=== PATIENT | male | born 1935 | race Caucasian/White ===

== ENCOUNTER → 2018-02-07 11:21 | Outpatient (CLI) | payer MEDICARE, SELFPAY ==
[2018-02-07 11:43] LABS: Bacteria 0 SEEN /hpf (None Seen); Mucous, Urine 0 SEEN /hpf (<or=2+); Red Blood Cells-Urine 0 SEEN /hpf (0-5); Squamous Epithelial Cells - UA 0 SEEN /hpf (0-5); White Blood Cells 0 SEEN /hpf (0-5)
[2018-02-07 11:51] LABS: Color, Urine Yellow (Yellow); Glucose, Dipstick Normal (Normal); Ketone-Dipstick Negative (Negative); Leukocyte Esterase-Dipstick Negative /ul (Negative); Nitrite-Dipstick Negative (Negative); Occult Blood-Urine Negative /ul (Negative); Protein-Dipstick 15 mg/dl (Negative); Urine Bilirubin Dipstick Negative (Negative); Urine Clarity Clear (Clear); Urine Urobilinogen Normal (Normal)
[2018-02-07 12:06] LABS: ALB/GLOB Ratio 1.1 RATIO (0.9-2.4); AST(SGOT) 24 U/L (15-37); Alanine Aminotransfer ALT/SGPT 27 U/L (16-61); Albumin, Serum 3.6 g/dL (3.2-5.0); Alkaline Phosphatase 50 U/L (45-117); Anion Gap 8 (5-15); BUN 19 mg/dL (7-18); Calcium,Total 8.5 mg/dL (8.5-10.1); Chloride 106 mmol/L (98-107); Cholesterol 134 mg/dL (200); EST Glomerular Filtration Rate 76 mL/min (>60); Est Glom Filt Rate - Afr Amer 92 mL/min (>60); Globulin 3.3 g/dL (2.2-4.2); Glucose 133 mg/dL (74-106); High Density Lipoprotein 51 mg/dL; Potassium 4.2 mmol/L (3.5-5.1); Protein, Total 6.9 g/dL (6.4-8.2); Sodium Level 141 mmol/L (136-145); Thyroid Stim Hormone (TSH) 1.82 uIU/mL (0.358-3.74); Triglycerides 72 mg/dL; Very Low Density Lipoprotein 14 mg/dL (5-40)
[2018-02-07 12:07] LABS: Hemoglobin A1c 7.2 % (4.2-6.3)
[2018-02-07 12:10] LABS: Microalbumin,Random Urine 75.9 mg/L (NO RANGE EST.); Microalbumin:Creatinine Ratio 75.1 mg/g CRE (<30 mg/g CRE)
== END ==
PROVIDERS: Family Provider Internal Medicine; PCP Internal Medicine; Visit Provider Internal Medicine
DX: E11.29 Type 2 diabetes mellitus with other diabetic kidney complication (principal); Z79.4 Long term (current) use of insulin; R80.9 Proteinuria, unspecified; E78.2 Mixed hyperlipidemia; I10 Essential (primary) hypertension
CPT/HCPCS: 80053; 80061; 81001; 82043; 82570; 83036; 84443

== ENCOUNTER → 2018-08-11 15:25 | Outpatient (CLI) | payer MEDICARE, SELFPAY ==
[2018-08-11 16:58] LABS: Hematocrit 43.9 % (40-54); Mean Corp Hgb Conc 31.9 g/gl (32-36); Mean Corpuscular Hgb 30.6 pg (27.0-32.0); Mean Corpuscular Volume 96.1 fL (80-94); Mean Platelet Vol. 10.6 fl (6.2-12.0); Platelet Count 258 K/mm3 (150-450); RBC Distribution Width CV 12.6 % (11.6-14.6); Red Blood Count 4.57 M/mm3 (4.6-6.2); White Blood Count 5.9 K/mm3 (4.4-11.0)
[2018-08-11 16:59] LABS: ALB/GLOB Ratio 0.9 RATIO (0.9-2.4); AST(SGOT) 18 U/L (15-37); Alanine Aminotransfer ALT/SGPT 23 U/L (16-61); Albumin, Serum 3.5 g/dL (3.2-5.0); Alkaline Phosphatase 58 U/L (45-117); Anion Gap 7 (5-15); BUN 15 mg/dL (7-18); BUN/Creat Ratio 16.5 RATIO (10-20); Calcium,Total 8.7 mg/dL (8.5-10.1); Chloride 105 mmol/L (98-107); Cholesterol 150 mg/dL (200); Creatinine, Serum 0.91 mg/dL (0.70-1.30); EST Glomerular Filtration Rate 85 mL/min (>60); Est Glom Filt Rate - Afr Amer 103 mL/min (>60); Globulin 3.7 g/dL (2.2-4.2); Glucose 58 mg/dL (74-106); High Density Lipoprotein 44 mg/dL; Protein, Total 7.2 g/dL (6.4-8.2); Sodium Level 139 mmol/L (136-145); Triglycerides 83 mg/dL; Very Low Density Lipoprotein 17 mg/dL (5-40)
[2018-08-11 17:01] LABS: Scan Indicated on CBC? Y/N NO
[2018-08-11 17:11] LABS: Microalbumin:Creatinine Ratio 92.2 mg/g CRE (<30 mg/g CRE)
[2018-08-11 17:29] LABS: Hemoglobin A1c 7.8 % (4.2-6.3)
== END ==
PROVIDERS: Family Provider Internal Medicine; PCP Internal Medicine; Referring Provider Internal Medicine; Visit Provider Internal Medicine
DX: E78.2 Mixed hyperlipidemia (principal); I10 Essential (primary) hypertension; E11.29 Type 2 diabetes mellitus with other diabetic kidney complication; R80.9 Proteinuria, unspecified; Z79.4 Long term (current) use of insulin
CPT/HCPCS: 80053; 80061; 82043; 82570; 83036; 85027

== ENCOUNTER → 2019-02-19 | Outpatient (CLI) | payer MEDICARE, SELFPAY ==
[2019-02-19 11:29] LABS: Hematocrit 46.6 % (40-54); Hemoglobin 15.1 g/dL (13.0-16.5); Mean Corp Hgb Conc 32.4 g/dL (32-36); Mean Corpuscular Hgb 31.3 pg (27.0-32.0); Mean Corpuscular Volume 96.5 fL (80-94); Mean Platelet Vol. 10.1 fl (6.2-12.0); Platelet Count 220 K/mm3 (150-450); RBC Distribution Width CV 12.2 % (11.6-14.6); RBC Distribution Width SD 43.8 fl (35.1-43.9); Red Blood Count 4.83 M/mm3 (4.6-6.2); White Blood Count 7.2 K/mm3 (4.4-11.0)
[2019-02-19 11:51] LABS: AST(SGOT) 15 U/L (15-37); Alanine Aminotransfer ALT/SGPT 25 U/L (16-61); Albumin, Serum 3.7 g/dL (3.2-5.0); Alkaline Phosphatase 56 U/L (45-117); Anion Gap 4 (5-15); BUN 21 mg/dL (7-18); BUN/Creat Ratio 22.2 RATIO (10-20); Chloride 105 mmol/L (98-107); Creatinine, Serum 0.95 mg/dL (0.70-1.30); EST Glomerular Filtration Rate 81 mL/min (>60); Est Glom Filt Rate - Afr Amer 98 mL/min (>60); Globulin 3.6 g/dL (2.2-4.2); Glucose 154 mg/dL (74-106); Potassium 4.5 mmol/L (3.5-5.1); Protein, Total 7.3 g/dL (6.4-8.2); Sodium Level 136 mmol/L (136-145)
[2019-02-19 11:52] LABS: Hemoglobin A1c 7.6 % (4.2-6.3)
== END | disposition home or self-care (01) ==
LOC: LABSPEC 11:16
PROVIDERS: Family Provider Internal Medicine; PCP Internal Medicine; Referring Provider Internal Medicine; Visit Provider Internal Medicine
DX: E11.29 Type 2 diabetes mellitus with other diabetic kidney complication (principal); R80.9 Proteinuria, unspecified; Z79.4 Long term (current) use of insulin; I10 Essential (primary) hypertension; Z79.899 Other long term (current) drug therapy
CPT/HCPCS: 80053; 83036; 84443; 85027

== ENCOUNTER → 2019-08-27 12:44 | Outpatient (CLI) | payer MEDICARE, SELFPAY ==
[2019-08-27 13:16] LABS: Hematocrit 46.2 % (40-54); Hemoglobin 14.8 g/dL (13.0-16.5); Mean Corpuscular Hgb 30.5 pg (27.0-32.0); Mean Corpuscular Volume 95.1 fL (80-94); Mean Platelet Vol. 10.3 fl (6.2-12.0); Platelet Count 252 K/mm3 (150-450); RBC Distribution Width CV 12.1 % (11.6-14.6); RBC Distribution Width SD 41.8 fl (35.1-43.9); Red Blood Count 4.86 M/mm3 (4.6-6.2)
[2019-08-27 13:20] LABS: ALB/GLOB Ratio 0.9 RATIO (0.9-2.4); AST(SGOT) 18 U/L (15-37); Alanine Aminotransfer ALT/SGPT 26 U/L (16-61); Albumin, Serum 3.5 g/dL (3.2-5.0); Alkaline Phosphatase 70 U/L (45-117); Anion Gap 4 (5-15); BUN 14 mg/dL (7-18); BUN/Creat Ratio 13.7 RATIO (10-20); Calcium,Total 9.4 mg/dL (8.5-10.1); Chloride 105 mmol/L (98-107); Cholesterol 151 mg/dL (200); Creatinine, Serum 1.02 mg/dL (0.70-1.30); EST Glomerular Filtration Rate 74 mL/min (>60); Est Glom Filt Rate - Afr Amer 90 mL/min (>60); Globulin 3.9 g/dL (2.2-4.2); Glucose 136 mg/dL (74-106); High Density Lipoprotein 48 mg/dL; Potassium 4.5 mmol/L (3.5-5.1); Protein, Total 7.4 g/dL (6.4-8.2); Sodium Level 138 mmol/L (136-145); Triglycerides 116 mg/dL; Very Low Density Lipoprotein 23 mg/dL (5-40)
[2019-08-27 13:24] LABS: Hemoglobin A1c 7.6 % (4.2-6.3)
[2019-08-27 13:36] LABS: Microalbumin:Creatinine Ratio 109.7 mg/g CRE (<30 mg/g CRE)
== END ==
PROVIDERS: PCP Internal Medicine; Referring Provider Internal Medicine; Visit Provider Internal Medicine
DX: E11.29 Type 2 diabetes mellitus with other diabetic kidney complication (principal); R80.9 Proteinuria, unspecified; E78.2 Mixed hyperlipidemia; Z79.4 Long term (current) use of insulin
CPT/HCPCS: 80053; 80061; 82043; 82570; 83036; 85027

== ENCOUNTER → 2020-03-03 | Outpatient (CLI) | payer MEDICARE, SELFPAY ==
[2020-03-03 16:16] LABS: ALB/GLOB Ratio 1.1 RATIO (0.9-2.4); AST(SGOT) 17 U/L (15-37); Alanine Aminotransfer ALT/SGPT 19 U/L (16-61); Albumin, Serum 3.6 g/dL (3.2-5.0); Alkaline Phosphatase 47 U/L (45-117); Anion Gap 4 (5-15); BUN 16 mg/dL (7-18); BUN/Creat Ratio 17.1 RATIO (10-20); Calcium,Total 8.7 mg/dL (8.5-10.1); Chloride 107 mmol/L (98-107); Cholesterol 138 mg/dL (200); Creatinine, Serum 0.94 mg/dL (0.70-1.30); EST Glomerular Filtration Rate 82 mL/min (>60); Est Glom Filt Rate - Afr Amer 99 mL/min (>60); Globulin 3.2 g/dL (2.2-4.2); Glucose 91 mg/dL (74-106); High Density Lipoprotein 58 mg/dL; Potassium 4.7 mmol/L (3.5-5.1); Protein, Total 6.8 g/dL (6.4-8.2); Sodium Level 139 mmol/L (136-145); Triglycerides 70 mg/dL; Very Low Density Lipoprotein 14 mg/dL (5-40)
[2020-03-03 16:24] LABS: Hemoglobin A1c 6.8 % (3.8-5.6)
== END | disposition home or self-care (01) ==
LOC: LABSPEC 12:29
PROVIDERS: PCP Internal Medicine; Referring Provider Internal Medicine; Visit Provider Internal Medicine
DX: E11.9 Type 2 diabetes mellitus without complications (principal); I10 Essential (primary) hypertension; E78.2 Mixed hyperlipidemia; Z79.4 Long term (current) use of insulin
CPT/HCPCS: 80053; 80061; 83036

== ENCOUNTER 2021-11-04 12:47 | Emergency (ER) | payer MEDICARE, SELFPAY ==
[2021-11-04 12:49] VITALS: BP 168/64; PULSE 55; RESP 17; TEMP 36.1; O2SAT 100; BMI 25.3
--- NOTE | 2021-11-04 13:08 | EX.ED.GUMALE ---
HPI History of Present Illness Chief Complaint: Complaint Informant: patient and spouse/S.O. Narrative Narrative: Patient presents with hematuria. This is the third day this is gone on. He has no pain or dysuria. He feels he empties fully. He has no fevers chills sweats nausea or vomiting. Nothing really makes his better or worse. He had this once back in 2016 but it only occurred with one episode of urination and he was not seen for this. He had history of bladder stone removal about 2 years prior. He has no history of cancer. No recent weight loss or fevers. Patient did have a fall about 6 days ago. His mechanical fall he hit his left shoulder knee and bumped his head. No loss of consciousness. He never hit his abdomen back or flank. He states those areas are sore. He is not having headaches or any neurologic symptoms. [facility] Medical History (Updated 11/04/21 @ 15:[address] Ayaz Caceres MD) BPH (benign prostatic hyperplasia) Diabetes mellitus HTN (hypertension) Hyperlipemia Throat cancer Home Medications enalapril maleate [Vasotec] 20 mg PO DAILY 02/16/14 [History Last Taken 03/08/14 08:30] insulin aspart U-100 [Novolog Flexpen U-100 Insulin] 10 units SUBCUT BIDCM 02/16/14 [History Last Taken 03/08/14 08:30] insulin glargine [Lantus SoloStar Pen] 11 units SUBCUT QHS 10/15/14 [History Last Taken Unknown] lovastatin 20 mg PO DAILY 10/15/14 [History Last Taken Unknown] multivitamin with folic acid [Thera] 1 tab PO DAILY 10/15/14 [History Last Taken Unknown] aspirin [Aspir-81] 81 mg PO DAILY 11/04/21 [History Last Taken Unknown] Allergy/AdvReac Type Severity Reaction Status Date / Time No Known Allergies Allergy Verified 11/04/21 12:47 Social History Smoking Status: Never smoker ROS ROS ED Constitutional Constitutional ED: Denies chills or fever(s) Eyes Eyes: Denies blurry vision or change in vision ENT ENT ED: Denies rhinorrhea Cardiovascular Cardiovascular: Denies chest pain Respiratory/Chest Respiratory/Chest: Denies cough or dyspnea Gastrointestinal Gastrointestinal: Denies abdominal pain, diarrhea, nausea or vomiting Genitourinary Genitourinary ED: Reports hematuria; Denies dysuria or urinary frequency Musculoskeletal Musculoskeletal: Denies back pain or myalgias Integumentary Denies rash Neurologic Neurologic: Denies headache(s) Psychiatric Psychiatric: Denies depression Hematologic/Lymphatic Hematologic/Lymphatic: Reports other Details: Only anticoagulation is aspirin. ; Denies easy bleeding or easy bruising Allergic/Immunologic Allergic/Immunologic ED: Denies urticaria EXAM Physical Exam Const Vital Signs: 11/04/21 12:49 11/04/21 14:40 11/04/21 15:15 Temperature 97.0 F L Temperature Source Temporal Pulse Rate 55 L 60 67 Respiratory Rate 17 18 18 Blood Pressure 168/64 H 191/61 H 172/60 H Blood Pressure Mean 98 104 97 Pulse Ox 100 97 99 Oxygen Delivery Method Room Air Room Air Room Air Positive well nourished and well developed General Appearance ED: well developed and NAD HEENT HEENT Narrative: Patient does have contusion to the left forehead and a little bit of contusion bruising around the eyelids. No step-off or tenderness. No intraoral petechiae. Eyes Eyes Narrative: Bruising as above Neck no lymphadenopathy, supple and no JVD Resp normal respiratory effort and clear to auscultation bilaterally Cardio regular rhythm Rate: bradycardia no CVA tenderness Narrative: No bruising abrasions or tenderness. Back/Spine no CVA tenderness Extremity normal to inspection Neuro oriented x3 Sensorium / Orientation: alert Psych mental status grossly normal Skin Rashes: no rashes MDM MDM MDM Narrative Medical decision making narrative: CBC shows normal white count and normal hemoglobin. Coagulation studies are normal. Electrolytes show no marked abnormalities. Creatinine is still normal. Urine shows large number of red cells but no white cells or signs of infection. Patient was irrigated. I actually got clear. But he starting to get a little pink again. We are doing more irrigation. I talked with the patient about options. I explained that I do not have urology boilermaker assembly and erection today. I include make calls up to [place] or [place] or [place] for today. Patient states he feels fine he does not want to go up there. He wants to see Dr. Fernandez know who he has seen before. He called the office on Saturday but Dr. Fernandez was out Saturday and Saturday. Patient would rather go home and call on Saturday. I explained that he will likely have continued bleeding. If he gets lightheaded weak fevers chills or obstruction he should come back. We discussed leaving the catheter in but the patient does not want this at all. Therefore, we will get the patient home. Although patient did have a fall it was several days before this occurred. He never hit his abdomen chest or back. I do not think this is related to that. Lab Data Attestation: I reviewed the patient's lab results. Labs: Laboratory Results - last 24 hr 11/04/21 11/04/21 11/04/21 13:50 13:50 13:50 WBC 8.1 RBC 4.54 L Hgb 14.2 Hct 43.6 MCV 96.0 H MCH 31.3 MCHC 32.6 RDW Std Deviation 43.8 RDW Coeff of Rangel 12.3 Plt Count 244 MPV 9.7 Immature Gran % (Auto) 0.600 Neut % (Auto) 63.5 Lymph % (Auto) 23.2 [place] % (Auto) 12.0 H Eos % (Auto) 0.2 Baso % (Auto) 0.5 Absolute Neuts (auto) 5.1 Absolute Lymphs (auto) 1.87 Nucleated RBC % 0 PT 12.7 INR 1.0 APTT 28.2 Sodium 139 Potassium 4.5 Chloride 109 H Carbon Dioxide 27.0 Anion Gap 3 L BUN 18 Creatinine 1.10 Estim Creat Clear Calc 42.71 Est GFR (MDRD) Af Amer 82 Est GFR (MDRD) Non-Af 68 BUN/Creatinine Ratio 16.4 Glucose 96 Calcium 9.4 Urine Color Urine Clarity Urine pH Ur Specific [place] Urine Protein Urine Glucose (UA) Urine Ketones Urine Occult Blood Urine Nitrite Urine Bilirubin Urine Urobilinogen Ur Leukocyte Esterase Urine RBC Urine WBC Ur Squamous Epith Cells Urine Bacteria Urine Mucus 11/04/21 13:50 WBC RBC Hgb Hct MCV MCH MCHC RDW Std Deviation RDW Coeff of Rangel Plt Count MPV Immature Gran % (Auto) Neut % (Auto) Lymph % (Auto) [place] % (Auto) Eos % (Auto) Baso % (Auto) Absolute Neuts (auto) Absolute Lymphs (auto) Nucleated RBC % PT INR APTT Sodium Potassium Chloride Carbon Dioxide Anion Gap BUN Creatinine Estim Creat Clear Calc Est GFR (MDRD) Af Amer Est GFR (MDRD) Non-Af BUN/Creatinine Ratio Glucose Calcium Urine Color Red Urine Clarity Turbid Urine pH 7.0 Ur Specific [place] 1.010 Urine Protein 500 H Urine Glucose (UA) Normal Urine Ketones 15 H Urine Occult Blood 150 H Urine Nitrite Negative Urine Bilirubin Negative Urine Urobilinogen Normal Ur Leukocyte Esterase Negative Urine RBC > 100 SEEN Urine WBC 0 SEEN Ur Squamous Epith Cells 0 SEEN Urine Bacteria 0 SEEN Urine Mucus 0 SEEN Discharge Plan Triage Chief Complaint: Complaint ED Provider: Ayaz Caceres Dx/Rx/DC Orders Clinical Impression: Hematuria Instructions: ED Hematuria Prescriptions: No Action enalapril maleate [Vasotec] 20 MG tablet 20 mg PO DAILY RF: 0 insulin aspart U-100 [Novolog Flexpen U-100 Insulin] 100 UNITS/ML insulin pen 10 units subcut BIDCM RF: 0 lovastatin 20 MG tablet 20 mg PO DAILY RF: 0 Lantus Solostar U-100 Insulin 100 UNITS/ML insulin pen 11 units subcut QHS RF: 0 multivitamin with folic acid [Thera] 1 TABLET tablet 1 tab PO DAILY RF: 0 aspirin [Aspir-81] 81 mg Tablet,Delayed Release (Dr/Ec) 81 mg PO DAILY RF: 0 Primary Care Provider: Galilea Horn Referrals: Adán Fernandez MD [STAFF PHYSICIAN] - As soon as possible Galilea Horn MD [Primary Care Provider] - Disposition Disposition: Home, Self Care
[2021-11-04 13:55] LABS: Bacteria 0 SEEN /hpf (None Seen); Mucous, Urine 0 SEEN /hpf (<or=2+); Squamous Epithelial Cells - UA 0 SEEN /hpf (0-5); White Blood Cells 0 SEEN /hpf (0-5)
[2021-11-04 13:57] LABS: Color, Urine Red (Yellow); Glucose, Dipstick Normal (Normal); Ketone-Dipstick 15 mg/dl (Negative); Leukocyte Esterase-Dipstick Negative /ul (Negative); Nitrite-Dipstick Negative (Negative); Occult Blood-Urine 150 /ul (Negative); Protein-Dipstick 500 mg/dl (Negative); Urine Bilirubin Dipstick Negative (Negative); Urine Clarity Turbid (Clear); Urine Urobilinogen Normal (Normal)
[2021-11-04 14:03] LABS: Absolute Lymphocyte Count 1.87 X10^3/uL (0.83-4.51); Absolute Neutrophil Count 5.1 X10^3/uL (2.0-7.7); Basophil# 0.04 X10^3/uL; Basophil% 0.5 % (0-1); Eosinophil# 0.02 X10^3/uL; Eosinophils% 0.2 % (0-5); Hematocrit 43.6 % (40-54); Hemoglobin 14.2 g/dL (13.0-16.5); Lymphocyte # 1.87 X10^3/ul (0.83-4.51); Lymphocyte % 23.2 % (19-41); Mean Corp Hgb Conc 32.6 g/dL (32-36); Mean Corpuscular Hgb 31.3 pg (27.0-32.0); Mean Platelet Vol. 9.7 fl (6.2-12.0); Monocyte# 0.97 X10^3/uL; NRBC Flagged by Analyzer 0 % (0-5); Neutrophil # 5.11 X10^3/uL (2.7-7.7); Neutrophil % 63.5 % (47-70); Platelet Count 244 K/mm3 (150-450); RBC Distribution Width CV 12.3 % (11.6-14.6); RBC Distribution Width SD 43.8 fl (35.1-43.9); Red Blood Count 4.54 M/mm3 (4.6-6.2); White Blood Count 8.1 K/mm3 (4.4-11.0)
[2021-11-04 14:06] LABS: Red Blood Cells-Urine > 100 SEEN /hpf (0-5)
[2021-11-04 14:10] LABS: Partial Thromboplast Time 28.2 Seconds (24.1-36.2); Prothrombin Time (Protime)PT. 12.7 SECONDS (11.7-14.9)
[2021-11-04 14:14] LABS: Anion Gap 3 (5-15); BUN 18 mg/dL (7-18); BUN/Creat Ratio 16.4 RATIO (10-20); Calcium,Total 9.4 mg/dL (8.5-10.1); Chloride 109 mmol/L (98-107); EST Glomerular Filtration Rate 68 mL/min (>60); Est Glom Filt Rate - Afr Amer 82 mL/min (>60); Estimated Creatinine Clearance 42.71 ml/min; Glucose 96 mg/dL (74-106); Potassium 4.5 mmol/L (3.5-5.1); Sodium Level 139 mmol/L (136-145)
--- NOTE | 2021-11-04 14:39 | ED.RN ---
urine was light pink with low continuous irrigation. this nurse came in to drain catheter bag. urine bright red again, increased continuous irrigation.
[2021-11-04 14:40] VITALS: BP 191/61; PULSE 60; RESP 18; O2SAT 97
--- NOTE | 2021-11-04 14:49 | ED.RN ---
pt urine back to light pink almost clear, decreased continuous irrigation.
[2021-11-04 15:15] VITALS: BP 172/60; PULSE 67; RESP 18; O2SAT 99
[2021-11-04 16:10] VITALS: BP 172/60; PULSE 65; RESP 18; O2SAT 97
== END 2021-11-04 16:12 | disposition home or self-care (01) ==
PROVIDERS: Emergency Provider Emergency Medicine; PCP Internal Medicine; Visit Provider Emergency Medicine
DX: R31.9 Hematuria, unspecified (principal); E11.9 Type 2 diabetes mellitus without complications; Z79.4 Long term (current) use of insulin; E78.5 Hyperlipidemia, unspecified; I10 Essential (primary) hypertension; N40.0 Benign prostatic hyperplasia without lower urinary tract symptoms; Z79.82 Long term (current) use of aspirin; Z79.899 Other long term (current) drug therapy
CPT/HCPCS: 51702; 80048; 81001; 85025; 85610; 85730; 87086; 99284; A4216

== ENCOUNTER → 2024-12-11 | Outpatient (CLI) | payer MEDICARE, SELFPAY ==
--- NOTE | 2024-12-11 14:40 | RAD_ITS ---
PROCEDURE: CHEST PA AND LATERAL 12/11/2024 REASON FOR EXAM: HISTORY OF BASE OF TONGUE CARCINOMA TECHNIQUE: Frontal and lateral views of the chest. COMPARISON: None FINDINGS: Hardware: None Heart: The heart size is normal. Mediastinum: Calcification of the aortic arch. Lungs: Scattered calcified granulomas. Elevation of the anterior right hemidiaphragm. Mild scarring at the lung bases. Bones: Degenerative changes are identified within the thoracic spine. Degenerative changes of both shoulder joints. RAD/Chest PA and Lateral IMPRESSION: Chronic changes. No acute abnormality is seen. Reading Location: [id number]
== END | disposition home or self-care (01) ==
PROVIDERS: PCP Internal Medicine; Referring Provider Otolaryngology; Visit Provider Otolaryngology
DX: Z85.810 Personal history of malignant neoplasm of tongue (principal)
CPT/HCPCS: 71046

== ENCOUNTER 2024-12-14 11:12 | Emergency (ER) | payer MEDICARE, SELFPAY ==
[2024-12-14] VITALS (8 sets, daily range): BP systolic 112–155; BP diastolic 47–96; PULSE 62–77; RESP 14–20; TEMP 36.1–36.4; O2SAT 95–98; BMI 22.5
--- NOTE | 2024-12-14 11:58 | EKG12_ITS ---
Test Reason : FAL/CONFUSION Blood Pressure : */* mmHG Vent. Rate : 70 BPM Atrial Rate : 70 BPM P-R Int : 152 ms QRS Dur : 74 ms QT Int : 394 ms P-R-T Axes : 76 31 -28 degrees QTcB Int : 425 ms Normal sinus rhythm Septal infarct , age undetermined Abnormal ECG Confirmed by KEI VANG, LOLA ([id number]), editor department CONCEPCION JUAREZ ([id number]) on 12/15/2024 1:27:06 PM Referred By: Confirmed By: LOLA CHOUDHURY MD
[2024-12-14 12:11] LABS: Absolute Lymphocyte Count 0.91 X10^3/uL (0.83-4.51); Absolute Neutrophil Count 7.6 X10^3/uL (2.0-7.7); Basophil# 0.02 X10^3/uL; Basophil% 0.2 % (0-1); Hematocrit 40.6 % (40-54); Hemoglobin 13.6 g/dL (13.0-16.5); Lymphocyte # 0.91 X10^3/ul (0.83-4.51); Lymphocyte % 9.5 % (19-41); Mean Corp Hgb Conc 33.5 g/dL (32-36); Mean Corpuscular Hgb 31.6 pg (27.0-32.0); Mean Corpuscular Volume 94.4 fL (80-94); Mean Platelet Vol. 10.4 fl (6.2-12.0); Monocyte# 1.08 X10^3/uL; Monocyte% 11.2 % (0-10); NRBC Flagged by Analyzer 0 % (0-5); Neutrophil # 7.55 X10^3/uL (2.7-7.7); Neutrophil % 78.5 % (47-70); Platelet Count 216 K/mm3 (150-450); RBC Distribution Width CV 12.6 % (11.6-14.6); RBC Distribution Width SD 43.3 fl (35.1-43.9); White Blood Count 9.6 K/mm3 (4.4-11.0)
[2024-12-14] MEDS: 0.9% Normal Saline (1000mL) 1,000 ML 999 ML IV ×2 (12:14→12:19)
--- NOTE | 2024-12-14 12:35 | ED.RN ---
family refusing catheter at this time d/t history of complications with a catheter in the past. dr aware. will wait for clean catch
[2024-12-14 12:43] LABS: Free T3 1.9 pg/mL (2.18-3.98)
--- NOTE | 2024-12-14 12:45 | CT_ITS ---
PROCEDURE: SPINE CERVICAL WITHOUT CONTRAS 12/14/2024 REASON FOR EXAM: TRAUMA Hypotension. History of falls. TECHNIQUE: Cervical spine CT without contrast. Coronal and Sagittal reconstruction series were provided. One or more dose reduction techniques were used (e.g., Automated exposure control, adjustment of the mA and/or kV according to patient size, use of iterative reconstruction technique RADIATION DOSE SUMMARY: CTDlvol: 14 mGy DLP: 360 mGycm COMPARISON: None FINDINGS: Alignment: Unremarkable Vertebrae: Degenerative changes of the atlantoaxial joint. Soft Tissues: Calcification of the carotid bifurcations bilaterally. C1-2: Degenerative changes of the atlantoaxial joint. C2-3: Mild degree of disc space narrowing. Uncovertebral arthrosis. No significant stenosis. C3-4: Mild degree of disc space narrowing. Uncovertebral arthrosis worse on the left side with left neural foraminal stenosis. C4-5: Mild degree of disc space narrowing. Facet joint osteoarthritis and hypertrophy worse on the left side. Uncovertebral arthrosis. Mild degree of bilateral neural foraminal stenosis. C5-6: Mild degree of disc space narrowing. Spondylosis. Uncovertebral arthrosis. Bilateral neural foraminal stenosis worse on the right side. C6-7: Mild degree of disc space narrowing. No significant stenosis seen. C7-T1: Unremarkable CT/Spine Cervical without Contras IMPRESSION: NO ACUTE CERVICAL FRACTURE. Multilevel degenerative changes as described. Reading Location: [place] [id number]
--- NOTE | 2024-12-14 12:45 | CT_ITS ---
PROCEDURE: BRAIN/HEAD WITHOUT CONTRAST 12/14/2024 REASON FOR EXAM: TRAUMA History of falls. Hypotension. TECHNIQUE: Head CT without intravenous contrast. Coronal and Sagittal reconstruction series were provided. One or more dose reduction techniques were used (e.g., Automated exposure control, adjustment of the mA and/or kV according to patient size, use of iterative reconstruction technique. RADIATION DOSE SUMMARY: CTDlvol: 44.99 mGy DLP: 829.85 mGycm COMPARISON: None FINDINGS: Brain: Low density in the periventricular white matter suggests mild chronic small vessel ischemic changes. CSF Spaces: Mild generalized cerebral atrophy. Mild degree of cerebellar atrophy. Atherosclerotic calcification of the cavernous portions of the internal carotid arteries bilaterally. Sinuses/Mastoids: Clear at visualized levels Bones: Unremarkable. CT/Brain/Head without Contrast IMPRESSION: CHRONIC CHANGES. NO ACUTE FINDINGS. Reading Location: [place] [id number]
--- NOTE | 2024-12-14 12:45 | CT_ITS ---
PROCEDURE: CT CHEST, ABD, PEL W/CONTRAST 12/14/2024 REASON FOR EXAM: FALL, AMS TECHNIQUE: Chest, abdomen and pelvis CT with intravenous contrast. Coronal and Sagittal reconstruction series were provided. One or more dose reduction techniques were used (e.g., Automated exposure control, adjustment of the mA and/or kV according to patient size, use of iterative reconstruction technique. PATIENT PREPARATION: Per protocol ORAL CONTRAST TYPE: None. CONTRAST: Isovue-300 VOLUME: 100mL RADIATION DOSE SUMMARY: CTDlvol: 402 mGy DLP: 810 mGycm COMPARISON: None FINDINGS: CT CHEST: Hardware: None Lymph nodes: No abnormal lymph nodes. Heart and Vasculature: Coronary artery calcifications are noted. Atherosclerotic calcifications of the thoracic aorta. Pulmonary arteries are unremarkable. Atherosclerotic Lungs and Airways: No focal infiltrate is seen. Calcified granuloma in the posterior lateral aspect of the left lower lobe superiorly as well as in the right lung. Pleura: Unremarkable Bones: Degenerative changes of the thoracic spine. CT ABDOMEN/PELVIS: Liver: Normal size. No mass. Gallbladder: No evidence of gallstones. Spleen: Normal size. Pancreas: Normal size without evidence of mass surrounding inflammation or ductal dilation. Adrenals: Unremarkable Kidneys: Normal renal sizes. No hydronephrosis. Bladder: Distended urinary bladder. Marked enlargement of the prostate gland measuring 7.1 cm by 8 cm causing indentation of the bladder base. Bowel: Colonic diverticulosis without diverticulitis. Appendix: The appendix is not identified. There is no inflammatory process identified in the right lower quadrant to suggest appendicitis. Lymph nodes: Unremarkable. Vasculature: Mild diffuse atherosclerotic calcifications of the aorta and major visceral branches are noted. Peritoneum / Retroperitoneum: Small calcified subcutaneous nodules along the anterior abdominal wall most likely secondary to subdermal injections. Bones: Mild degenerative changes of the spine. CT/CT Chest, Abd, Pel w/Contrast IMPRESSION: Marked enlargement of the prostate gland with indentation of the bladder base. Sigmoid diverticulosis. No other abnormality is seen. Reading Location: [place] [id number]
[2024-12-14 12:55] LABS: ALB/GLOB Ratio 1.6 RATIO (0.9-2.4); AST(SGOT) 38 U/L (<=37); Alanine Aminotransfer ALT/SGPT 15 U/L (<=46); Albumin, Serum 4.2 g/dL (3.4-4.8); Alkaline Phosphatase 62 U/L (40-129); Anion Gap 14 (5-15); BUN 36 mg/dL (4-19); BUN/Creat Ratio 23.6 RATIO (10-20); Calcium,Total 9.3 mg/dL (7.6-11.0); Carbon Dioxide 22.3 mmol/L (21.0-32.0); Chloride 100 mmol/L (98-108); Creatinine, Serum 1.54 mg/dL (0.70-1.20); EST Glomerular Filtration Rate 43 (>60); Estimated Creatinine Clearance 28.24 ml/min (50-250); Globulin 2.6 g/dL (2.2-4.2); Glucose 212 mg/dL (70-99); Potassium 4.1 mmol/L (3.3-5.1); Protein, Total 6.8 g/dL (5.9-8.4); Sodium Level 136 mmol/L (133-145); Total Bilirubin 0.95 mg/dL (0.00-1.30)
[2024-12-14 12:56] LABS: Partial Thromboplast Time 26.7 Seconds (24.1-36.2)
[2024-12-14 12:59] LABS: Lactic Acid 2.5 mmol/L (0.0-2.0)
[2024-12-14 13:21] LABS: Bacteria 0 SEEN /hpf (None Seen); Mucous, Urine 0 SEEN /hpf (<or=2+); Red Blood Cells-Urine 0 SEEN /hpf (0-5); Squamous Epithelial Cells - UA 0 SEEN /hpf (0-5); White Blood Cells 0 SEEN /hpf (0-5)
[2024-12-14 13:43] LABS: Color, Urine Yellow (Yellow); Glucose, Dipstick 100 mg/dl (Normal); Ketone-Dipstick 15 mg/dl (Negative); Leukocyte Esterase-Dipstick Negative /ul (Negative); Nitrite-Dipstick Negative (Negative); Occult Blood-Urine 25 /ul (Negative); Protein-Dipstick 100 mg/dl (Negative); Specific Gravity, Urine 1.015 (1.002-1.030); Urine Bilirubin Dipstick Negative (Negative); Urine Clarity Clear (Clear); Urine Urobilinogen Normal (Normal)
--- NOTE | 2024-12-14 13:58 | EX.ED.DYSGE1 ---
HPI History of Present Illness Chief Complaint: Confusion Narrative Narrative: Patient is a 89-year-old male with past medical history of hypertension, diabetes, BPH, hyperlipidemia, throat cancer who presented to the emergency department with a chief complaint of falls x 2 with concern of low blood pressure at home therefore family brought him here for further evaluation management. According to the family members they recently moved him in with them and noted that he has been more tired and sleeping a lot lately with decreased appetite. They are concerned therefore they brought him here for further evaluation management. [facility] Medical History Throat cancer Hyperlipemia HTN (hypertension) Diabetes mellitus BPH (benign prostatic hyperplasia) Home Medications ?Medication ?Instructions ?Recorded ?Last Taken ?Type enalapril maleate 20 mg tablet 20 mg PO DAILY 02/16/14 03/08/14 08:30 History (Vasotec) insulin aspart U-100 100 unit/mL 10 units subcut BIDCM 02/16/14 03/08/14 08:30 History (3 mL) subcutaneous pen (Novolog FlexPen U-100 Insulin aspart) insulin glargine 100 unit/mL (3 11 units subcut QHS 10/15/14 Unknown History mL) subcutaneous pen (Lantus Solostar U-100 Insulin) lovastatin 20 mg tablet 20 mg PO DAILY 10/15/14 Unknown History multivitamin with folic acid 400 1 tab PO DAILY 10/15/14 Unknown History mcg tablet (Thera) aspirin 81 mg tablet,delayed 81 mg PO DAILY 11/04/21 Unknown History release amlodipine 10 mg tablet 10 mg PO DAILY 12/14/24 Unknown History Allergy/AdvReac Type Severity Reaction Status Date / Time No Known Allergies Allergy Verified 12/14/24 11:16 Social History Smoking Status: Never smoker ROS ROS ED ROS Narrative Constitutional: Denies any fevers, chills, headaches, lightness, dizziness Eyes: Denies change in vision double vision blurry vision Cardiovascular: Denies chest pain Respiratory: Denies shortness of breath Abdomen: Complains of abdominal pain denies nausea vomit diarrhea : Denies any urinary symptoms Neurological: Denies numbness, weakness, tingling Musculoskeletal: Denies back pain Skin: Denies rashes or lesions EXAM Physical Exam Narrative Exam Narrative: General: Patient lying in bed rest comfortably did not appear to be in acute distress Head: Atraumatic, normocephalic Eyes: PERRL bilaterally, EOMI bilaterally, Neck: Soft, supple, trachea midline Cardiovascular: Regular rate and rhythm no murmurs gallops rubs noted Respiratory: Clear to auscultation bilaterally no rales rhonchi or wheezes noted Abdomen: Soft, nondistended, diffuse tenderness to palpation Musculoskeletal: All bony prominences palpated joints taken to full range of motion no pain elicited Extremities: +4/5 strength noted in the bilateral upper and lower extremity, radial pulse +2/4 in the bilateral extremities, no pedal edema on exam Neurological: Patient following commands knew that he was at [facility] the year is 2024 Skin: Warm, dry, tact no rashes or lesions noted Const Vital Signs: 12/14/24 11:12 12/14/24 11:13 12/14/24 11:16 Temperature 97.6 F L 97.6 F L Temperature Source Temporal Temporal Pulse Rate 73 64 Respiratory Rate 18 14 Respiratory Effort Respiratory Depth Respiratory Pattern Blood Pressure 112/96 H 137/50 H Blood Pressure Mean 101 79 Pulse Ox 98 95 Oxygen Delivery Method Room Air Room Air 12/14/24 11:54 12/14/24 11:58 12/14/24 12:16 Temperature 97.4 F L Temperature Source Temporal Pulse Rate 77 Respiratory Rate 18 Respiratory Effort Normal Respiratory Depth Normal Respiratory Pattern Normal Blood Pressure 147/48 H Blood Pressure Mean 81 Pulse Ox 96 Oxygen Delivery Method Room Air Room Air Room Air 12/14/24 13:00 12/14/24 14:00 12/14/24 15:00 Temperature 97.6 F L 97 F L 97.1 F L Temperature Source Temporal Axillary Axillary Pulse Rate 76 73 62 Respiratory Rate 20 H 20 H 20 H Respiratory Effort Respiratory Depth Respiratory Pattern Blood Pressure 155/47 H 150/50 H 120/57 L Blood Pressure Mean 83 83 75 Pulse Ox 96 96 96 Oxygen Delivery Method Room Air MDM MDM MDM Narrative Medical decision making narrative: Patient is a 89-year-old male who presented to the emergency department the chief complaint of generalized fatigue and multiple falls recently. On the differential diagnosis includes but not limited to intracranial hemorrhage, rib fracture, pneumothorax, intra-abdominal process, UTI, pneumonia. Once workup is obtained and reviewed he will be reevaluated. Patient be given 30 cc/kg bolus of IV fluids. Patient CBC was reviewed showed no evidence leukocytosis white blood count normal 9.6, hemoglobin 13.6, platelet count was noted to be 216. Patient INR normal at 1, PT of 13. Patient sodium is 136, potassium of 4.1, creatinine was elevated 1.54, anion gap normal at 14. Patient lactic acid was elevated 2.5, TSH normal 1.86, free T4 and T3 normal at 1 and 1.9 respectively, urinalysis reviewed showed no evidence of infection. Patient's CT head brain without contrast reviewed and showed no acute findings. Patient CT cervical spine reviewed showed no acute cervical fracture or listhesis he has multilevel degenerative changes noted. Patient CT chest and pelvis with IV contrast was reviewed and showed no evidence of pneumonia, marked enlargement of the prostate gland with indentation of the bladder base sigmoid diverticulosis. Patient's EKG reviewed and showed sinus rhythm with a rate of 70 bpm. On reevaluation the patient he is much more alert and awake and family members agree with this as well and they state that after fluids and hydration he is much more alert. They would like to take him home at this point in time. Patient ambulated well here in the emergency department no tachycardia no hypoxia and was steady on his feet. Advised to follow-up with primary care physician outpatient setting return with worsening symptoms and concerns. They are agreeable this plan all question concerns answered he is discharged home in stable condition. Lab Data Labs: Laboratory Results - last 24 hr 12/14/24 12/14/24 12/14/24 11:45 12:05 13:15 WBC 9.6 RBC 4.30 L Hgb 13.6 Hct 40.6 MCV 94.4 H MCH 31.6 MCHC 33.5 RDW Std Deviation 43.3 RDW Coeff of Rangel 12.6 Plt Count 216 MPV 10.4 Immature Gran % (Auto) 0.600 Neut % (Auto) 78.5 H Lymph % (Auto) 9.5 L [place] % (Auto) 11.2 H Eos % (Auto) 0.0 Baso % (Auto) 0.2 Absolute Neuts (auto) 7.6 Absolute Lymphs (auto) 0.91 Nucleated RBC % 0 PT 13.0 INR 1.0 APTT 26.7 Sodium 136 Potassium 4.1 Chloride 100 Carbon Dioxide 22.3 Anion Gap 14 BUN 36 H Creatinine 1.54 H Estim Creat Clear Calc 28.24 L Est GFR (MDRD) Non-Af 43 L BUN/Creatinine Ratio 23.6 H Glucose 212 H Lactic Acid 2.5 H* Calcium 9.3 Total Bilirubin 0.95 AST 38 ALT 15 Alkaline Phosphatase 62 Total Protein 6.8 Albumin 4.2 Globulin 2.6 Albumin/Globulin Ratio 1.6 TSH 1.860 Free T4 1.00 Free T3 pg/dL 1.9 L Urine Color Yellow Urine Clarity Clear Urine pH 5.0 Ur Specific [place] 1.015 Urine Protein 100 H Urine Glucose (UA) 100 H Urine Ketones 15 H Urine Occult Blood 25 H Urine Nitrite Negative Urine Bilirubin Negative Urine Urobilinogen Normal Ur Leukocyte Esterase Negative Urine RBC 0 SEEN Urine WBC 0 SEEN Ur Squamous Epith Cells 0 SEEN Urine Bacteria 0 SEEN Urine Mucus 0 SEEN Radiography Diagnostic Testing: Clinical Impression(s) from Imaging Studies Brain CT 12/14/24 12:45 IMPRESSION: CHRONIC CHANGES. NO ACUTE FINDINGS. Reading Location: [facility]- Cervical Spine CT 12/14/24 12:45 IMPRESSION: NO ACUTE CERVICAL FRACTURE. Multilevel degenerative changes as described. Reading Location: [facility]- Chest/Abdomen/Pelvis CT 12/14/24 12:45 IMPRESSION: Marked enlargement of the prostate gland with indentation of the bladder base. Sigmoid diverticulosis. No other abnormality is seen. Reading Location: [place] [id number] Discharge Plan Triage Chief Complaint: Confusion Other Complaint: Fall ED Provider: David Joiner Dx/Rx/DC Orders Clinical Impression: Generalized weakness, Dehydration Prescriptions: No Action enalapril maleate [Vasotec] 20 MG tablet 20 mg PO DAILY Patient Comments: blood pressure insulin aspart U-100 [Novolog FlexPen U-100 Insulin] 100 UNITS/ML insulin pen 10 units subcut BIDCM Patient Comments: diabetes, AVERAGE DOSE 10 lovastatin 20 MG tablet 20 mg PO DAILY insulin glargine [Lantus Solostar U-100 Insulin] 100 UNITS/ML insulin pen 11 units subcut QHS Patient Comments: DOSE VARIES HS multivitamin with folic acid [Thera] 1 TABLET tablet 1 tab PO DAILY aspirin [Aspir-81] 81 mg Tablet,Delayed Release (Dr/Ec) 81 mg PO DAILY amlodipine 10 mg tablet 10 mg PO DAILY Primary Care Provider: Galilea Horn Referrals: Adán Fernandez MD [Med Staff - Active Staff] - Galilea Horn MD [Primary Care Provider] - Activity Restrictions/Additional Instructions: Ensure adequate hydration push plenty of water. Ensure eating adequately as well. Follow-up with urology they referred to as your prostate is enlarged and need follow-up on this. Return with worsening symptoms or concerns. Print Language: Luxembourgish Disposition Disposition: Home, Self Care
[2024-12-14 16:22] LABS: Reflex Lactate? Y
== END 2024-12-14 15:46 | disposition home or self-care (01) ==
PROVIDERS: Emergency Provider Emergency Medicine; PCP Internal Medicine; Visit Provider Emergency Medicine
DX: R53.1 Weakness (principal); E11.9 Type 2 diabetes mellitus without complications; E86.0 Dehydration; I10 Essential (primary) hypertension; R41.0 Disorientation, unspecified; K57.30 Diverticulosis of large intestine without perforation or abscess without bleeding; E78.5 Hyperlipidemia, unspecified; Z79.899 Other long term (current) drug therapy; R29.6 Repeated falls; Z91.81 History of falling
CPT/HCPCS: 70450; 71260; 72125; 74177; 80053; 81001; 83605; 84439; 84443; 84481; 85025; 85610; 85730; 87040; 87086; 87088; 87631; 93005; 96360; 96361; 99285; A4216

== ENCOUNTER 2024-12-31 13:00 | Outpatient (CLI) | payer MEDICARE, SELFPAY ==
--- NOTE | 2025-01-05 09:45 | PAT.ANESEVAL ---
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 When Was Last Pacemaker Check QUESTION #4 FULL TEXT: You/Your Family Experience fever (hyperthermia) with Anesthesia Last Oral Intake Last Oral intake: Last Oral Intake NPO since Meds taken in AM with sips of water? Meds patient instructed to take am of surgery PONV PONV - transportation refrigeration technician: PONV - transportation refrigeration technician Female No 01/05/25 08:35 HX of Motion Sickness No 01/05/25 08:35 HX of N/V After Surgery No 01/05/25 08:35 Non-Smoker Yes 01/05/25 08:35 Duration of Surgery greater Yes 01/05/25 08:35 than 60 minutes Number of Risk Factors 2 01/05/25 08:35 PONV Score Moderate Risk 01/05/25 08:35 Height & Weight Height & Weight: Anesthesia: Height & Weight Height 5 ft 5 in 12/14/24 11:13 Respiratory Assessment Respiratory Assessment - transportation refrigeration technician: Respiratory Tract Infection Hx - transportation refrigeration technician Hx Respiratory Tract Infection No 01/05/25 08:35 STOP Sleep Apnea STOP Sleep Apnea - transportation refrigeration technician: STOP Sleep Apnea - transportation refrigeration technician Hx Hypertension Yes: controlled with med 01/05/25 08:35 Hx Sleep Apnea No 01/05/25 08:35 CPAP No 10/15/14 10:02 BIPAP No 10/15/14 10:02 Do you snore loudly (louder No 01/05/25 08:35 than talking or can be heard Do you often feel tired/ No 01/05/25 08:35 fatigued/ sleepy during daytime? Has anyone observed you stop No 01/05/25 08:35 breathing during sleep? STOP Results Negative 01/05/25 08:35 QUESTION #5 FULL TEXT : Do you snore loudly (louder than talking or can be heard through closed doors)? 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 Specify any problems Hx of Preganancy in last 3 N/A 01/05/25 08:35 Months Nurse Filling Out Transfusion [facility] 01/05/25 08:35 & Questions: Date: 01/05/25 01/05/25 08:35 Time: 08:42 01/05/25 08:35 Patient unable to answer at this time (ie. confused, unrespo /Reproduction History /Reproductive History - transportation refrigeration technician: /Reproductive Hx- transportation refrigeration technician Hx Now No 01/05/25 08:35 Gestational Age (in weeks): EDC: Hx Hx Para Hx Section SAB No 01/05/25 08:35 Active Medications Active Medications: Current Medications Generic Name Dose Route Start Last Admin Trade Name Freq PRN Reason Stop Dose Admin Cefazolin Sodium 2 gm/ Sodium 110 mls @ 150 mls/hr 01/06/25 10:35 Chloride IV 01/06/25 11:18 INTRAOP ONE [facility] Medical History (Updated 01/05/25 @ 08:48 by Lindsey Frost) Loss of hearing Wears dentures Cancer Walker as ambulation aid Ambulates with cane Prostate disease High cholesterol Easy bruising Difficulty chewing Insulin dependent diabetes mellitus Diverticulosis Former smoker Throat cancer (~2018) Hyperlipemia HTN (hypertension) Diabetes mellitus BPH (benign prostatic hyperplasia) Home Medications ?Medication ?Instructions ?Recorded ?Last Taken ?Type enalapril maleate 20 mg tablet 20 mg PO DAILY 02/16/14 03/08/14 08:30 History (Vasotec) insulin glargine 100 unit/mL (3 16 unit subcut QHS 10/15/14 Unknown History mL) subcutaneous pen (Lantus Solostar U-100 Insulin) lovastatin 20 mg tablet 20 mg PO DAILY 10/15/14 Unknown History amlodipine 10 mg tablet 10 mg PO DAILY 12/14/24 Unknown History dutasteride 0.5 mg capsule 0.5 mg PO DAILY 01/05/25 Unknown History tamsulosin 0.4 mg capsule 0.4 mg PO QHS 01/05/25 Unknown History Allergy/AdvReac Type Severity Reaction Status Date / Time No Known Allergies Allergy Verified 01/05/25 08:29 Social History Smoking Status: Former smoker Audit: Pertinent Findings Pertinent Findings EKG Perinent findings: 12/14/2024. Normal sinus rhythm 70 bpm. Septal infarct, age undetermined. Echo (EF%) pertinent findings: 12/09/2013. EF 65%. Pulmonary artery pressure 38 mmHg. Recommendation Anesthesia Recommendation Anesthesia recommendation: OPTIMIZED for anesthesia
--- NOTE | 2025-01-06 08:43 | PRE.ANES_ITS ---
ASA Classification* ASA Classification ASA Classification: 2 Assessment & Plan Anesthesia* Anesthesia Assessment Anesthesia Assessment: Discussed sedation and/or anesthesia options, risks, benefits, and alternatives with patient/parents/legal guardian/POA. Questions invited. The patient/parents/legal guardian/POA seems to understand and agrees to proceed with anesthesia plan. Reviewed the physical assessment, medical history, allergy history and patient home medications list prior to surgery/procedure/anesthetic and documented any changes. Performed airway and anesthesia risk assessments. Anesthesia Type Anesthesia Type: General Anesthesia Focused Assessment* Airway Assessment Mouth opens: >3 cm Mallampati Score: II Labs Anesthesia Preop lab: CBC WBC 9.6 K/mm3 (4.4-11.0) 12/14/24 11:45 12/14/24 RBC 4.30 M/mm3 (4.6-6.2) L 12/14/24 11:45 12/14/24 Hgb 13.6 g/dL (13.0-16.5) 12/14/24 11:45 12/14/24 Hct 40.6 % (40-54) 12/14/24 11:45 12/14/24 Plt Count 216 K/mm3 (150-450) 12/14/24 11:45 12/14/24 CHEMISTRY Potassium 4.1 mmol/L (3.3-5.1) 12/14/24 11:45 12/14/24 Sodium 136 mmol/L (133-145) 12/14/24 11:45 12/14/24 Magnesium 2.0 mg/dL (1.8-2.4) 06/04/16 09:27 06/04/16 Phosphorus 3.0 mg/dL (2.5-4.9) 12/10/13 17:56 12/10/13 BUN 36 mg/dL (4-19) H 12/14/24 11:45 12/14/24 Creatinine 1.54 mg/dL (0.70-1.20) H 12/14/24 11:45 Glucose 212 mg/dL (70-99) H 12/14/24 11:45 12/14/24 POC Glucose 306 mg/dL (70-110) H 03/09/14 16:49 03/09/14 TSH 1.860 uIU/mL (0.300-4.200) 12/14/24 11:45 0504/22 COAG PT 13.0 SECONDS (11.7-14.9) 12/14/24 11:45 Pre-Assessment Diagnosis/Proposed Procedure Planned Operative Procedure(s): Lap Robotic Simple Prostatectomy Anesthesia History 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 When Was Last Pacemaker Check QUESTION #4 FULL TEXT: You/Your Family Experience fever (hyperthermia) with Anesthesia Last Oral Intake Last Oral intake: Last Oral Intake NPO since Meds taken in AM with sips of water? Meds patient instructed to take am of surgery PONV PONV - manager animation: PONV - manager animation Female No 01/05/25 08:35 HX of Motion Sickness No 01/05/25 08:35 HX of N/V After Surgery No 01/05/25 08:35 Non-Smoker Yes 01/05/25 08:35 Duration of Surgery greater Yes 01/05/25 08:35 than 60 minutes Number of Risk Factors 2 01/05/25 08:35 PONV Score Moderate Risk 01/05/25 08:35 Height & Weight Height & Weight: Anesthesia: Height & Weight Height 5 ft 5 in 12/14/24 11:13 Respiratory Assessment Respiratory Assessment - manager animation: Respiratory Tract Infection Hx - manager animation Hx Respiratory Tract Infection No 01/05/25 08:35 STOP Sleep Apnea STOP Sleep Apnea - manager animation: STOP Sleep Apnea - manager animation Hx Hypertension Yes: controlled with med 01/05/25 08:35 Hx Sleep Apnea No 01/05/25 08:35 CPAP No 10/15/14 10:02 BIPAP No 10/15/14 10:02 Do you snore loudly (louder No 01/05/25 08:35 than talking or can be heard Do you often feel tired/ No 01/05/25 08:35 fatigued/ sleepy during daytime? Has anyone observed you stop No 01/05/25 08:35 breathing during sleep? STOP Results Negative 01/05/25 08:35 QUESTION #5 FULL TEXT : Do you snore loudly (louder than talking or can be heard through closed doors)? 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 Specify any problems Hx of Preganancy in last 3 N/A 01/05/25 08:35 Months Nurse Filling Out Transfusion [facility] 01/05/25 08:35 & Questions: Date: 01/05/25 01/05/25 08:35 Time: 08:42 01/05/25 08:35 Patient unable to answer at this time (ie. confused, unrespo /Reproduction History /Reproductive History - manager animation: /Reproductive Hx- manager animation Hx Now No 01/05/25 08:35 Gestational Age (in weeks): EDC: Hx Hx Para Hx Section SAB No 01/05/25 08:35 Active Medications Active Medications: Current Medications Generic Name Dose Route Start Last Admin Trade Name Freq PRN Reason Stop Dose Admin Cefazolin Sodium 2 gm/ Sodium 110 mls @ 150 mls/hr 01/06/25 10:35 Chloride IV 01/06/25 11:18 INTRAOP ONE Lactated Ringer's 1,000 mls @ 15 mls/hr 01/06/25 08:45 IV .Q48H SKYLAR PFSH Medical History Loss of hearing Wears dentures Cancer Walker as ambulation aid Ambulates with cane Prostate disease High cholesterol Easy bruising Difficulty chewing Insulin dependent diabetes mellitus Diverticulosis Former smoker Throat cancer (~2018) Hyperlipemia HTN (hypertension) Diabetes mellitus BPH (benign prostatic hyperplasia) Home Medications ?Medication ?Instructions ?Recorded ?Last Taken ?Type enalapril maleate 20 mg tablet 20 mg PO DAILY 02/16/14 03/08/14 08:30 History (Vasotec) insulin glargine 100 unit/mL (3 16 unit subcut QHS Unknown History mL) subcutaneous pen (Lantus Solostar U-100 Insulin) lovastatin 20 mg tablet 20 mg PO DAILY 10/15/14 Unkn own History amlodipine 10 mg tablet 10 mg PO DAILY 12/14/24 Unkn own History dutasteride 0.5 mg capsule 0.5 mg PO DAILY 01/05/25 Un known History tamsulosin 0.4 mg capsule 0.4 mg PO QHS 01/05/25 Unkno wn History Allergy/AdvReac Type Severity Reaction Status Date / Time No Known Allergies Allergy Verified 01/05/25 08:29 Social History Smoking Status: Former smoker Review of Systems (Anesthesia) ROS Narrative System reviewed and no additional complaints, except as documented.
[2025-01-06 09:30] VITALS: BP 177/46; PULSE 52; RESP 16; TEMP 36.4; O2SAT 100; BMI 20.1
[2025-01-06] MEDS: Lactated Ringers 1,000 ML 15 ML IV (09:40)
--- NOTE | 2025-01-06 09:54 | NURSING ---
PT AND FAMILY DECIDED TO CANCEL CASE. IV REMOVED AND PT D/C TO HOME.
[2025-01-07 10:38] LABS: Bedside Glucose 198 mg/dL (74-106)
== END 2024-12-31 19:00 | disposition home or self-care (01) ==
LOC: SDC 06-10 10:15
PROVIDERS: PCP Internal Medicine; Referring Provider Urology; Visit Provider Urology
DX: Z53.20 Procedure and treatment not carried out because of patient's decision for unspecified reasons (principal)
CPT/HCPCS: 82962; J2405